=== PATIENT | female | born 1950 | race Caucasian/White ===

== ENCOUNTER 2018-08-20 22:56 | Observation (INO) | payer BC ==
[~2018-08-20] VITALS: Ht 154.9 cm; Wt 58.3 kg
[2018-08-20] MEDS ORDERED: IOHEXOL 100 ML ONE (23:09)
[2018-08-20] MEDS ORDERED: SOD CHLORIDE 0.9% 100 ML ONE (23:09)
--- NOTE | 2018-08-20 23:40 | STROKE ---
Date/Time of Note Date/Time of Note DATE: 08/20/18 TIME: 23:38 Patient Information General Patient location: emergency Arrival Date Age 68 Gender female Weight 68.1 kg Vital Signs Vital Signs Vital Signs Date Temp Pulse Resp B/P (MAP) Pulse Ox O2 O2 Flow FiO2 Time Delivery Rate 08/20/18 98.2 89 20 129/65 99 23:01 (86) Patient History Current Medications Allergies: Coded Allergies: No Known Allergy (Unverified , 08/20/18) Labs Coagulation Labs: Coagulation Test 08/20/18 23:03 Activated Partial Thromboplast Time 27.3 Sec (23.0-35.0) History & Physical History of Present Illness 68 F LKW 2230 PST with LUE weakness and right facial droop. Patient and family deny focal neurologic deficits today. Family brought patient to ED due to repeated events of "passing out and falling over", with family reporting she has had a stroke in the past and they thought this was a stroke. NIH Stroke Scale NIH Stroke Scale [id number] Total Score: [id number] Date/Time Recorded DATE: 08/20/18 TIME: 23:38 Submitted By Karsten Rea t-PA Imaging Review Imaging Reviewed: Yes Date/Time Imaging Reviewed DATE: 08/20/18 TIME: 23:38 t-PA Administration Recommendation: No Weight 68.1 kg Recommedation submitted by Karsten Rea Reason t-PA not Recommended NIHSS 0 and stroke not suspected Recommendations Recommendation 68 with events of passing out and falling over without any reported focal deficit per family or patient. Reportedly had right facial droop and left arm drift upon ED arrival. Not present on my examination such that NIHSS is 0. Given reported transient focal deficits in ED, TIA is possible. Events at home described by family more concerning fo syncope of cardiac etiology, seizure, or other encephalopathy. Not tPA candidate as NIHSS 0. - F/u pending CTA formal read (no LVO amenable to thrombectomy on my prelim review) - TIA work-up per local team - Syncope, encephalopathy work-ups per local team KARSTEN REA MD Aug 20, 2018 23:40
[2018-08-21] VITALS (8 sets, daily range): BP systolic 110–121; BP diastolic 60–68; PULSE 77–85; RESP 18–20; Ht 154.9 cm; Wt 58.3 kg
[2018-08-21] MEDS ORDERED: DEXTROSE 50% 50 ML SYRINGE IV ONE
--- NOTE | 2018-08-21 00:48 | ERD ---
ER Documentation Chief Complaint Chief Complaint LKWT: 10:15pm, left side facial droop, altered. HPI This is a 5-year-old female with last known well time was 1015 comes in with left-sided facial droop and is altered mental status per family. Patient herself cannot provide any relevant history. Family also noticed is a right-sided weakness to her upper extremities and she has been stumbling. No fevers or chills. No recent head trauma. Again history is limited secondary patient's baseline mental status and family's lack of knowledge of patient's medical history. They do relate a history of diabetes mellitus. ROS All systems reviewed and are negative except as per history of present illness. Allergies Allergies: Coded Allergies: No Known Allergy (Unverified , 08/20/18) PMhx/Soc Medical and Surgical Hx: pt denies Surgical Hx History of Surgery: No Anesthesia Reaction: No Hx Neurological Disorder: Yes (TIAs) Hx Respiratory Disorders: No Hx Cardiac Disorders: No Hx Psychiatric Problems: No Hx Miscellaneous Medical Probl: No Hx Alcohol Use: No Hx Substance Use: No Hx Tobacco Use: No Smoking Status: Never smoker Physical Exam Vitals Vital Signs Date Temp Pulse Resp B/P (MAP) Pulse Ox O2 O2 Flow FiO2 Time Delivery Rate 08/21/18 98 13 126/74 99 Room Air 00:30 (91) 08/21/18 95 15 134/79 100 Room Air 00:01 (97) 08/20/18 Nasal 2 23:30 Cannula 08/20/18 93 14 143/74 98 Room Air 23:22 (97) 08/20/18 98.2 89 20 129/65 99 23:01 (86) Physical Exam Const: No acute distress Head: Atraumatic Eyes: Normal Conjunctiva ENT: Normal External Ears, Nose and Mouth. Neck: Full range of motion. No meningismus. Resp: Clear to auscultation bilaterally Cardio: Regular rate and rhythm, no murmurs Abd: Soft, non tender, non distended. Normal bowel sounds Skin: No petechiae or rashes Back: No midline or flank tenderness Ext: No cyanosis, or edema Neur: Awake and somewhat alert. Mild left-sided facial droop noted. No focal neurological findings on exam otherwise. Psych: Normal Mood and Affect Result Diagram: 08/20/18 23008/20/18 230 Results 24 hrs Laboratory Tests Test 2/25/19 23:03 08/20/18 23:39 08/20/18 23:57 White Blood Count 13.4 10^3/ul Red Blood Count 3.63 10^6/ul Hemoglobin 10.8 g/dl Hematocrit 33.2 % Mean Corpuscular Volume 91.5 fl Mean Corpuscular Hemoglobin 29.8 pg Mean Corpuscular 32.5 g/dl Hemoglobin Concent Red Cell Distribution Width 13.7 % Platelet Count 278 10^3/UL Mean Platelet Volume 10.5 fl Immature Granulocytes % 0.500 % Neutrophils % 61.0 % Lymphocytes % 30.1 % Monocytes % 6.3 % Eosinophils % 1.7 % Basophils % 0.4 % Nucleated Red Blood Cells % 0.0 /100WBC Immature Granulocytes # 0.070 10^3/ul Neutrophils # 8.2 10^3/ul Lymphocytes # 4.0 10^3/ul Monocytes # 0.8 10^3/ul Eosinophils # 0.2 10^3/ul Basophils # 0.1 10^3/ul Nucleated Red Blood Cells # 0.0 10^3/ul Prothrombin Time 11.3 Sec Prothrombin Time Ratio 0.9 INR International Normalized Ratio 0.81 Activated Partial Thromboplast 27.3 Sec Time Sodium Level 142 mmol/L Potassium Level 3.1 mmol/L Chloride Level 107 mmol/L Carbon Dioxide Level 23 mmol/L Anion Gap 12 Blood Urea Nitrogen 29 mg/dl Creatinine 1.14 mg/dl Est Glomerular Filtrat Rate mL/min 47 mL/min Glucose Level 34 mg/dl Hemoglobin A1c 6.6 % Calcium Level 8.9 mg/dl Total Bilirubin 0.0 mg/dl Direct Bilirubin 0.00 mg/dl Indirect Bilirubin 0.0 mg/dl Aspartate Amino Transf (AST/SGOT) 19 IU/L Alanine 13 IU/L Aminotransferase (ALT/SGPT) Alkaline Phosphatase 84 IU/L Creatine Kinase 58 IU/L Creatine Kinase Index 0.8 Creatinine Kinase MB (Mass) 0.44 ng/ml Troponin I < 0.012 ng/ml Total Protein 7.1 g/dl Albumin 4.1 g/dl Globulin 3.00 g/dl Albumin/Globulin Ratio 1.36 Triglycerides Level 360 mg/dl Cholesterol Level 155 mg/dl LDL Cholesterol, Calculated 35 mg/dl HDL Cholesterol 48 mg/dl Cholesterol/HDL Ratio 3.2 RATIO Ethyl Alcohol Level < 10.0 mg/dl Bedside Glucose 36 mg/dL 234 mg/dL Current Medications Medications Dose Sig/Hira Start Time Status Last (Trade) Ordered Route PRN Stop Time Admin Dose Reason Admin Dextrose 50 ml ONCE ONCE 08/21/18 DC 08/20/18 (D50w IV 00:00 23:45 Syringe) 08/21/18 00:01 Procedures/MDM Emergency department course: Patient seen in triage brought in immediately to be evaluated by ER MD.: Code stroke called at 2303. Telemetry neurology Dr. Herbert was consulted at 2307. Patient had CT of the head along with CT angios which were both read as negative. Appreciate Dr. Junior consultation. Symptoms resolved while in CT and under Dr. Herbert observation. Not a TPA candidate port Dr. Herbert. Lab called and reported blood glucose of 34. It was rechecked by fingerstick in the ER until 36. Given 2 A of D50. EKG: Rate/Rhythm: [Normal Sinus Rhythm] QRS, ST, T-waves: [No changes consistent w/ acute ischemia] Impression: [No evidence of ischemia or arrhythmia] Chest X-ray 1V Interpreted by me: Soft Tissue: No acute abnormalities Bones: No acute abnormalities Mediastinum/Cardiac Silhouette/Lungs: [No acute abnormalities] Medical decision making: This is a 5-year-old female altered mental status and facial droop is resolved. It is possible to secondary to severe hypoglycemia, however given the patient's advanced age and presenting symptoms I feel the patient is to be admitted further evaluation and management for a TIA workup. Hospitalist was made aware at 12:48 AM Critical Care: Time: 44 minutes, independent of any separately billable procedural time Treatments/Evaluations: Close monitoring and treatment of unstable vital signs, cardiorespiratory, and neurologic status, while maintaining tight balance of fluid, respiratory, and cardiac interventions. Departure Diagnosis: Primary Impression: Altered mental status Altered mental status type: unspecified Qualified Codes: R41.82 - Altered mental status, unspecified Additional Impressions: Altered level of consciousness TIA (transient ischemic attack) Condition: Serious KIT AVILEZTino Aug 21, 2018 00:48
[2018-08-21] MEDS ORDERED: LOSA50TA14 PO (02:15)
[2018-08-21] MEDS ORDERED: CLOT30CR35 TOP (02:15)
[2018-08-21] MEDS ORDERED: TAMS0.4C2 PO (02:15)
--- NOTE | 2018-08-21 06:42 | HP ---
Date/Time of Note Date/Time of Note DATE: 08/21/18 TIME: 06:40 Assessment/Plan Lines/Catheters IV Catheter Type (from Nrs): Saline Lock Assessment/Plan Assessment/Plan 1. Rule out CVA -Head CT negative for acute findings -Aspirin, statin -Frequent neuro checks -MRI of the brain and carotid Doppler ultrasound as well as 2D echo -PT and speech/swallow eval -Neurology consult 2. Hypertension: Continue home meds. Adjust as needed Result Diagram: 08/20/18230208/20/182302 Results 24hrs Laboratory Tests Test 08/20/18 23:03 08/20/18 23:39 08/20/18 23:57 08/21/18 01:39 White Blood Count 13.4 H Red Blood Count 3.63 L Hemoglobin 10.8 L Hematocrit 33.2 L Mean Corpuscular 91.5 Volume Mean Corpuscular 29.8 Hemoglobin Mean Corpuscular 32.5 Hemoglobin Concent Red Cell 13.7 Distribution Width Platelet Count 278 Mean Platelet Volume 10.5 H Immature 0.500 H Granulocytes % Neutrophils % 61.0 Lymphocytes % 30.1 Monocytes % 6.3 Eosinophils % 1.7 Basophils % 0.4 Nucleated Red Blood 0.0 Cells % Immature 0.070 H Granulocytes # Neutrophils # 8.2 H Lymphocytes # 4.0 H Monocytes # 0.8 Eosinophils # 0.2 Basophils # 0.1 Nucleated Red Blood 0.0 Cells # Prothrombin Time 11.3 L Prothrombin Time 0.9 Ratio INR International 0.81 Normalized Ratio Activated 27.3 Partial Thromboplast Time Sodium Level 142 Potassium Level 3.1 L Chloride Level 107 Carbon Dioxide Level 23 Anion Gap 12 Blood Urea Nitrogen 29 H Creatinine 1.14 H Est Glomerular 47 L Filtrat Rate mL/min Glucose Level 34 *L Hemoglobin A1c 6.6 H Calcium Level 8.9 Total Bilirubin 0.0 L Direct Bilirubin 0.00 Indirect Bilirubin 0.0 Aspartate Amino 19 Transf (AST/SGOT) Alanine 13 Aminotransferase (AL T/SGPT) Alkaline Phosphatase 84 Creatine Kinase 58 Creatine Kinase 0.8 Index Creatinine Kinase MB 0.44 (Mass) Troponin I < 0.012 Total Protein 7.1 Albumin 4.1 Globulin 3.00 Albumin/Globulin 1.36 Ratio Triglycerides Level 360 H Cholesterol Level 155 LDL Cholesterol, 35 Calculated HDL Cholesterol 48 Cholesterol/HDL 3.2 Ratio Ethyl Alcohol Level < 10.0 H Bedside Glucose 36 *L 234 H 81 Test 08/21/18 03:23 Bedside Glucose 117 HPI/ROS Admit Date/Time Admit Date/Time Hx of Present Illness This is a 5-year-old female with a history of hypertension and CVA who presents the ER complaining of right-sided facial droop and left upper extremity weakness. Reportedly patient has been passing out as well frequently. When presented to ER, vitals were stable. Head CT was negative for acute findings. Patient was evaluated by the telemetry neurologist who did not recommend TPA. Patient will be admitted for stroke workup. PMH/Family/Social Past Medical History Coded Allergies: No Known Allergy (Unverified , 08/20/18) Social History Smoking Status: Never smoker Exam/Review of Systems Vital Signs Vitals Vital Signs Date Temp Pulse Resp B/P (MAP) Pulse Ox O2 O2 Flow FiO2 Time Delivery Rate 08/21/18 98.1 87 12 111/64 95 Room Air 05:37 (80) 08/20/18 2 23:30 KIT SMITH MD Aug 21, 2018 06:41
[2018-08-21] MEDS ORDERED: ONDANSETRON 4 MG INJ IV PRN (07:00)
[2018-08-21] MEDS ORDERED: NACL 0.9% 3 ML SYG IV SCH (07:00)
[2018-08-21] MEDS ORDERED: ACETAMINOPHEN 325 MG TAB PO PRN (07:00)
[2018-08-21] MEDS ORDERED: ENOXAPARIN 40 MG/0.4 ML SYG SC SCH (09:00)
[2018-08-21] MEDS ORDERED: ASPIRIN 81 MG TAB PO SCH (09:00)
[2018-08-21] MEDS ORDERED: LOSARTAN 50 MG TAB PO SCH (09:00)
--- NOTE | 2018-08-21 13:48 | DS ---
Date/Time of Note Date/Time of Note DATE: 08/21/18 TIME: 13:46 Discharge Summary Admission/Discharge Info Admit Date/Time Aug 21, 2018 at 00:50 Discharge Date/Time Discharge Diagnosis 1. Acute encephalopathy with slurred speech secondary to hypoglycemia: resolved 2. Diabetes mellitus type 2 with too tight control, hemoglobin A1c 6.5 - Lantus dosing reduced 3. Mild dyslipidemia with hypertriglyceridemia 4. Chronic normocytic anemia: stable . Consults None . Hospital Course 68-year-old female who was brought inTo the emergency room after his son had noticed that his speech was confused and somewhat slurred she was admitted for stroke workup. However when she first got to the hospital he, her blood glucose level was 36 which made hypoglycemia a concern. The patient states that she had just recently been increased on her home Lantus dosing from 42-50 units. She did get a full stroke workup to include a CT scan of the brain that showed no acute abnormality, carotid Dopplers that showed no hemodynamically significant disease and at this time is awaiting MRI of the brain. I will also include a 2D echo and if the above investigations are negative the patient can be discharged home in stable condition. The patient is ambulant has been seen by physical therapy and has been discharged without any DME recommendations at this time. . Home Meds Reported Medications Tamsulosin Hcl* (Tamsulosin Hcl*) 0.4 Mg Cap.er.24h, 0.8 MG PO HS, CAP 08/21/18 Clotrimazole* (Lotrimin*) 1%-30 Gm Cream..g., 1 APPLIC TOP TID, TUB 08/21/18 Losartan Potassium* (Losartan Potassium*) 50 Mg Tablet, 50 MG PO DAILY, TAB 08/21/18 Follow-up Plan 1. Followup with your primary doctor within the next 1-2 weeks. If you don't have one please let someone know, we can give you resources that may help you pick one. You may call Dr Ketan Tomlinson's office. he's accepting new patients Name, Degree: Ketan Tomlinson MD Specialty: Internal Medicine Comments: Office Address: [address] [place], [place] [phone] Office Office You may also call your insurance company to assign one to you. 2. Review your medication list with your nurse before leaving and if you need new prescriptions please let your nurse know. 3. I may have made changes to your home medications or given you new prescriptions, please let your primary doctor know as well. 4. Stay compliant with your medications and report any side effects to your PCP or pharmacist. 5. Return to the ER if you have any concerns and cannot reach your doctors or call your insurance company, they usually have a nurse that can help you. . Primary Care Provider Not On Staff Doctor Time spent on discharge: > 30 minutes Pending Labs Laboratory Tests Test 08/20/18 23:03 08/20/18 23:39 08/20/18 23:57 08/21/18 01:39 White Blood 13.4 Count 10^3/ul (4.8-10 .8) Red Blood 3.63 Count 10^6/ul (4.20-5 .40) Hemoglobin 10.8 g/dl (12.0-16.0 ) Hematocrit 33.2 % (37.0-47.0) Mean 91.5 Corpuscular fl (82.0-101.0) Volume Mean 29.8 Corpuscular pg (29.0-33.0) Hemoglobin Mean 32.5 Corpuscular g/dl (32.0-37.0 Hemoglobin Conc ) ent Red Cell 13.7 Distribution % (11.5-14.5) Width Platelet Count 278 10^3/UL (140-41 5) Mean Platelet 10.5 Volume fl (7.4-10.4) Immature 0.500 Granulocytes % % (0.001-0.429) Neutrophils % 61.0 % (39.0-77.0) Lymphocytes % 30.1 % (15.0-51.0) Monocytes % 6.3 % (0.0-11.0) Eosinophils % 1.7 % (0.0-7.0) Basophils % 0.4 % (0.0-2.0) Nucleated Red 0.0 Blood Cells % /100WBC (0.0-0. 0) Immature 0.070 Granulocytes # 10^3/ul (0.0-0. 031) Neutrophils # 8.2 10^3/ul (1.6-7. 5) Lymphocytes # 4.0 10^3/ul (0.8-2. 9) Monocytes # 0.8 10^3/ul (0.3-0. 9) Eosinophils # 0.2 10^3/ul (0.0-0. 5) Basophils # 0.1 10^3/ul (0.0-0. 1) Nucleated Red 0.0 Blood Cells # 10^3/ul (0.0-0. 0) Prothrombin 11.3 Time Sec (11.9-14.9) Prothrombin 0.9 Time Ratio INR 0.81 International Normalized Rati o Activated 27.3 Partial Thrombo Sec (23.0-35.0) plast Time Sodium Level 142 mmol/L (135-144 ) Potassium 3.1 Level mmol/L (3.5-5.1 ) Chloride Level 107 mmol/L (97-110) Carbon Dioxide 23 Level mmol/L (21-31) Anion Gap 12 (5-13) Blood Urea 29 mg/dl (7-20) Nitrogen Creatinine 1.14 mg/dl (0.44-1.0 0) Est Glomerular 47 mL/min (>60) Filtrat Rate mL/min Glucose Level 34 mg/dl (70-220) Hemoglobin A1c 6.6 % (0-5.9) Calcium Level 8.9 mg/dl (8.4-10.2 ) Total 0.0 Bilirubin mg/dl (0.2-1.3) Direct 0.00 Bilirubin mg/dl (0.00-0.2 0) Indirect 0.0 Bilirubin mg/dl (0-1.1) Aspartate Amino 19 IU/L (15-46) Transf (AST/SGO T) Alanine 13 IU/L (13-69) Aminotransferas e (ALT/SGPT) Alkaline 84 Phosphatase IU/L (42-121) Creatine 58 Kinase IU/L (23-200) Creatine Kinase 0.8 Index Creatinine 0.44 Kinase MB ng/ml (0.0-2.4) (Mass) Troponin I < 0.012 ng/ml (0.000-0. 120) Total Protein 7.1 g/dl (6.1-8.1) Albumin 4.1 g/dl (3.3-4.9) Globulin 3.00 g/dl (1.3-3.2) Albumin/Globuli 1.36 n Ratio Triglycerides 360 Level mg/dl (0-149) Cholesterol 155 Level mg/dl (100-200) LDL 35 mg/dl Cholesterol, Calculated HDL 48 Cholesterol mg/dl (33-92) Cholesterol/HDL 3.2 RATIO Ratio Ethyl Alcohol < 10.0 Level mg/dl (0-0) Bedside 36 234 81 Glucose mg/dL (70-220) mg/dL (70-220) mg/dL (70-220) Test 08/21/18 03:23 08/21/18 07:55 08/21/18 09:40 08/21/18 12:09 Bedside 117 90 176 Glucose mg/dL (70-220) mg/dL (70-220) mg/dL (70-220) White Blood 8.1 Count 10^3/ul (4.8-1 0.8) Red Blood 3.56 Count 10^6/ul (4.20- 5.40) Hemoglobin 10.6 g/dl (12.0-16. 0) Hematocrit 32.3 % (37.0-47.0) Mean 90.7 Corpuscular fl (82.0-101.0 Volume ) Mean 29.8 Corpuscular pg (29.0-33.0) Hemoglobin Mean 32.8 Corpuscular g/dl (32.0-37. Hemoglobin Conc 0) ent Red Cell 13.8 Distribution % (11.5-14.5) Width Platelet Count 253 10^3/UL (140-4 15) Mean Platelet 10.4 Volume fl (7.4-10.4) Immature 0.200 Granulocytes % % (0.001-0.429 ) Neutrophils % 54.9 % (39.0-77.0) Lymphocytes % 36.2 % (15.0-51.0) Monocytes % 6.5 % (0.0-11.0) Eosinophils % 1.7 % (0.0-7.0) Basophils % 0.5 % (0.0-2.0) Nucleated Red 0.0 Blood Cells % /100WBC (0.0-0 .0) Immature 0.020 Granulocytes # 10^3/ul (0.0-0 .031) Neutrophils # 4.5 10^3/ul (1.6-7 .5) Lymphocytes # 2.9 10^3/ul (0.8-2 .9) Monocytes # 0.5 10^3/ul (0.3-0 .9) Eosinophils # 0.1 10^3/ul (0.0-0 .5) Basophils # 0.0 10^3/ul (0.0-0 .1) Nucleated Red 0.0 Blood Cells # 10^3/ul (0.0-0 .0) Sodium Level 140 mmol/L (135-14 4) Potassium 3.8 Level mmol/L (3.5-5. 1) Chloride Level 103 mmol/L (97-110 ) Carbon Dioxide 26 Level mmol/L (21-31) Anion Gap 11 (5-13) Blood Urea 21 Nitrogen mg/dl (7-20) Creatinine 0.83 mg/dl (0.44-1. 00) Est Glomerular > 60 Filtrat mL/min (>60) Rate mL/min Glucose Level 88 mg/dl (70-220) Hemoglobin A1c 6.5 % (0-5.9) Calcium Level 9.1 mg/dl (8.4-10. 2) Total 0.1 Bilirubin mg/dl (0.2-1.3 ) Direct 0.00 Bilirubin mg/dl (0.00-0. 20) Indirect 0.1 Bilirubin mg/dl (0-1.1) Aspartate Amino 17 Transf (AST/SGO IU/L (15-46) T) Alanine 14 Aminotransferas IU/L (13-69) e (ALT/SGPT) Alkaline 75 Phosphatase IU/L (42-121) Total Protein 6.6 g/dl (6.1-8.1) Albumin 3.9 g/dl (3.3-4.9) Globulin 2.70 g/dl (1.3-3.2) Albumin/Globuli 1.44 n Ratio Triglycerides 177 Level mg/dl (0-149) Cholesterol 138 Level mg/dl (100-200 ) LDL 59 mg/dl Cholesterol, Calculated HDL 44 Cholesterol mg/dl (33-92) Cholesterol/HDL 3.1 RATIO Ratio Thyroid 1.980 Stimulating MIU/L (0.465-4 Hormone (TSH) .680) YOVANY REHMAN Aug 21, 2018 13:47
[2018-08-21] MEDS ORDERED: ATOR20TA38 PO (13:50)
[2018-08-21] MEDS ORDERED: ASPI-831 PO (13:50)
--- NOTE | 2018-08-21 13:51 | PDOCDIS ---
Discharge Instructions DIAGNOSIS Discharge Diagnosis 1. Acute encephalopathy with slurred speech secondary to hypoglycemia: resolved 2. Diabetes mellitus type 2 with too tight control, hemoglobin A1c 6.5 - Lantus dosing reduced 3. Mild dyslipidemia with hypertriglyceridemia 4. Chronic normocytic anemia: stable . CONDITION [id number] Patient Condition: Soisg9w Stable HOME CARE INSTRUCTIONS: [id number] Your diet recommendation is: [id number] [id number] Activity Restrictions: Wisva9a Slowly Increase Activity Rest between Activity FOLLOW UP/APPOINTMENTS Follow-up Plan 1. Followup with your primary doctor within the next 1-2 weeks. If you don't have one please let someone know, we can give you resources that may help you pick one. You may call Dr Ketan Tomlinson's office. he's accepting new patients Name, Degree: Ketan Tomlinson MD Specialty: Internal Medicine Comments: Office Address: [address] [place], [place] [phone] Office Office You may also call your insurance company to assign one to you. 2. Review your medication list with your nurse before leaving and if you need new prescriptions please let your nurse know. 3. I may have made changes to your home medications or given you new prescriptions, please let your primary doctor know as well. 4. Stay compliant with your medications and report any side effects to your PCP or pharmacist. 5. Return to the ER if you have any concerns and cannot reach your doctors or call your insurance company, they usually have a nurse that can help you. . YOVANY REHMAN Aug 21, 2018 13:50
[2018-08-21] MEDS ORDERED: LEVEM SC (13:57)
--- NOTE | 2018-08-21 14:06 | RADRPT ---
Echocardiogram Report Patient Name: KIANA CANALESPatient ID: [id number] : 1950 (68y 6m)Study Date: 08/21/2018 9:44:06 AM Gender: FAccession #: [id number] Tech: Johnny Booker [facility] Location: [facility] Ref.Physician: KIT SMITH Height(Cm): BSA: Weight(Kg): Quality: Technically Difficult StudyAccount #: Procedures: Echocardiographic Report: Transthoracic echocardiogram with complete 2D, M-Mode, and doppler examination. Indications: Transient Ischemic Attack. Measurements: 2D/M Mode Doppler Measurement Value Normal Range Measurement Value Normal Range LVIDd 2D 3.5 [ 3.8 - 5.2 ] cm AV Peak Khanh 1.0 [ 100.0 - 170.0 ] cm/sec LVIDs 2D 2.5 [ 2.2 - 3.5 ] cm AV Peak PG 4.0 [ 2.0 - 9.0 ] mmHg LVPWd 2D 0.8 [ 0.6 - 0.9 ] cm LVOT Peak Khanh 1.0 [ 70.0 - 110.0 ] cm/sec IVSd 2D 1.0 [ 0.6 - 0.9 ] cm LVOT Peak PG 4.0 [ 2.0 - 6.0 ] mmHg AoR Diam 2D 3.0 [ 2.3 - 3.1 ] cm MV E Peak Khanh 0.7 [ 60.0 - 130.0 ] cm/sec EDV 2D 50.2 [ 46.0 - 106.0 ] ml MV A Peak Khanh 1.0 [ 100.0 - 120.0 ] cm/sec ESV 2D 21.4 [ 14.0 - 42.0 ] ml MV E/A 0.7 [ 0.8 - 1.5 ] ratio EF 2D 57.4 [ 54.0 - 74.0 ] percent MV Decel Time 225 [ 104 - 258 ] msec LA Dimen 2D 2.3 [ 2.7 - 3.8 ] cm Lat E` Khanh 0.1 [ 10.0 - 15.0 ] cm/sec Lateral E/E` 12.7 [ 1.0 - 2.0 ] ratio Med E` Khanh 0.0 cm/sec MV E/A 0.7 [ 0.8 - 1.5 ] ratio TR Peak Khanh 2.4 [ 100.0 - 280.0 ] cm/sec TR Peak PG 24.0 mmHg RVSP 27.0 [ 10.0 - 36.0 ] mmHg Findings: Left Ventricle: Normal left ventricular systolic function. Normal left ventricular cavity size. Normal left ventricular wall thickness. Ejection fraction is visually estimated at 60 %. Tissue Doppler/Mitral Doppler indices are consistent with impaired relaxation (Stage I diastolic dysfunction). Right Ventricle: Normal right ventricular size. Normal right ventricular systolic function. Left Atrium: The left atrium is normal in size. Right Atrium: The right atrium is normal in size. Mitral Valve: Mild mitral leaflet calcification. Mild mitral annular calcification. Trace mitral regurgitation. Aortic Valve: No significant aortic stenosis or insufficiency. Aortic cusps appear mildly calcified. Tricuspid Valve: Normal appearance of the tricuspid valve. Estimated peak PA systolic pressure 27 mmHg. There is mild tricuspid regurgitation. Pulmonic Valve: Pulmonic valve not well visualized. Pericardium: Normal pericardium with no significant pericardial effusion. Aorta: Normal aortic root. IVC: Normal size and normal respiratory collapse consistent with normal right atrial pressure. Conclusions: Fair quality study. Normal left ventricular systolic function. Grade 1 diastolic dysfunction. Mild tricuspid regurgitaiton with normal pulmonary pressures. Electronically Signed By: Sandy Knox 2018-08-21 14:06:01 [facility]
== END 2018-08-21 21:15 | disposition home or self-care (01) ==
LOC: E/R 22:56 → 6WM 08-21 00:50
PROVIDERS: ADMIT Internal Medicine; ATTEND Family Medicine
DX: G93.40 Encephalopathy, unspecified (principal); E11.649 Type 2 diabetes mellitus with hypoglycemia without coma; E78.5 Hyperlipidemia, unspecified; E78.1 Pure hyperglyceridemia; D64.9 Anemia, unspecified; I10 Essential (primary) hypertension
CPT/HCPCS: 70450; 70496; 70498; 70551; 71045; 80053; 80061; 80307; 82550; 82553; 82962; 83036; 84443; 84484; 85025; 85610; 85730; 93005; 93306; 93880; 97161; G0378; J1650; 96374; Q9967